=== PATIENT | female | born 1990 | race Caucasian/White ===

== ENCOUNTER 2020-03-12 22:05 | Inpatient (IN) | payer MEDICAID, OTHER ==
[~2020-03-12] VITALS: Ht 167.6 cm; Wt 84.5 kg
[~2020-03-12 22:05] MED LIST: ALBU8.5H5 INH; DOCU-131 PO; IBUP-1222 PO; OXYC-302 PO; PREN1TAB60 PO
[2020-03-13] MEDS: LACTATED RINGERS 1,000 ML IV SCH ×6 (00:15→21:54)
[2020-03-13] MEDS: D5%-LACTATED RINGERS 1,000 ML IV SCH ×4 (00:26→21:54)
[2020-03-13] MEDS ORDERED: OXYTOCIN 30U/ 0.9% NaCL 500ML 500 ML IV ONE (00:26)
[2020-03-13 00:30] VITALS: BP 100/60
[2020-03-13] MEDS ORDERED: SODIUM CITRATE/CITRIC ACID 30 ML UDC PO PRN (00:30)
[2020-03-13] MEDS ORDERED: TERBUTALINE 1 MG/ML, 1ML SQ PRN (00:30)
[2020-03-13] MEDS ORDERED: FENTANYL PF 100 MCG/2ML IVPush PRN (00:30)
[2020-03-13] MEDS ORDERED: ALUMINUM/MAG/SIMETHICONE 30 ML UDC PO PRN (00:30)
[2020-03-13] MEDS ORDERED: CALCIUM CARBONATE 500 MG TAB.CHEW PO PRN (00:30)
[2020-03-13] MEDS ORDERED: FENTANYL PF 100 MCG/2ML IV PRN (00:30)
[2020-03-13] MEDS ORDERED: METOCLOPRAMIDE 5 MG/ML, 2ML IVPush PRN (00:30)
[2020-03-13] MEDS ORDERED: SODIUM CHLORIDE FLUSH 10ML SYR IVF PRN (00:30)
[2020-03-13] MEDS ORDERED: TERBUTALINE 1 MG/ML, 1ML IVPush PRN (00:30)
[2020-03-13 00:52] LABS: BASOPHILS # (AUTO) 0.18 x10^3/uL (0-0.1); BASOPHILS % (AUTO) 2 % (0-1); EOSINOPHILS # (AUTO) 0.07 x10^3/uL (0-0.4); EOSINOPHILS % (AUTO) 1 % (1-7); LYMPHOCYTES # (AUTO) 2.37 x10^3/uL (1-3.4); LYMPHOCYTES % (AUTO) 20 % (22-44); MD NO; MEAN CORPUSCULAR HEMOGLOBIN 29.4 pg (27.0-34.8); MEAN CORPUSCULAR HGB CONC 33.2 g/dL (32.4-35.8); MEAN CORPUSCULAR VOLUME 88.6 fL (80-100); MEAN PLATELET VOLUME 9.3 fL (7.4-10.4); MONOCYTES # (AUTO) 0.58 x10^3/uL (0.2-0.8); MONOCYTES % (AUTO) 5 % (2-9); NEUTROPHILS # (AUTO) 8.42 x10^3/uL (1.8-6.8); NEUTROPHILS % (AUTO) 72 % (42-75); PLATELET COUNT 303 x10^3/uL (130-400); RED CELL DISTRIBUTION WIDTH 13.6 % (9.6-15.2)
[2020-03-13] MEDS ORDERED: MISOPROSTOL 25 MCG TABLET ONE ×2 (01:07→05:05)
[2020-03-13] MEDS: MISOPROSTOL 25 MCG TABLET VG PRN ×2 (01:15→05:11)
[2020-03-13] MEDS ORDERED: ALBUTEROL HFA 90 MCG/SPRAY INH PRN (03:30)
[2020-03-13] MEDS: KALYDECO PO SCH (09:00)
[2020-03-13] MEDS ORDERED: OXYTOCIN 30U/ 0.9% NaCL 500ML 500 ML IV PRN (09:34)
[2020-03-13] MEDS ORDERED: FENTANYL PF 100 MCG/2ML ONE ×3 (11:45→15:57)
[2020-03-13] MEDS ORDERED: ONDANSETRON 2MG/ML, 2ML ONE ×2 (13:44→21:21)
[2020-03-13] MEDS: ONDANSETRON 2MG/ML, 2ML IVPush PRN ×2 (13:45→21:23)
[2020-03-13] MEDS ORDERED: BUPIVACAINE 0.25% ONE ×2 (17:44→17:48)
[2020-03-13] MEDS ORDERED: FENTANYL/BUPIV./NS/PF 250 ML EPIDCONT ONE ×2 (17:44→17:48)
[2020-03-13] MEDS ORDERED: LIDOCAINE 1%, 20ML ONE (17:48)
[2020-03-13] MEDS ORDERED: LIDOCAINE/PF 1.5%-EPI 1:200K, 30ML ONE (17:48)
[2020-03-13] MEDS ORDERED: LACTATED RINGERS 1,000 ML IV SCH (18:05)
[2020-03-13] MEDS ORDERED: FENTANYL/BUPIV./NS/PF 250 ML EPIDCONT SCH (18:05)
[2020-03-13] MEDS ORDERED: DIPHENHYDRAMINE 50 MG/ML, 1ML IVPush PRN (18:30)
[2020-03-13] MEDS ORDERED: LACTATED RINGERS 1,000 ML IVBOLUS PRN (18:30)
[2020-03-13] MEDS ORDERED: NALOXONE 0.4 MG/ML, 1ML IVPush PRN (18:30)
[2020-03-13] MEDS ORDERED: ONDANSETRON 2MG/ML, 2ML IVPush PRN (18:30)
[2020-03-13] MEDS ORDERED: EPHEDRINE 50 MG/ML, 1ML IVPush PRN (18:30)
[2020-03-13 19:45] VITALS: BP 101/58
[2020-03-13] MEDS: OXYTOCIN 30U/ 0.9% NaCL 500ML 500 ML IV SCH ×2 (23:07→23:30)
[2020-03-13] MEDS ORDERED: NEWBORN KIT ONE (23:11)
[2020-03-13] MEDS ORDERED: IBUPROFEN 600 MG TABLET ONE (23:12)
[2020-03-13] MEDS: IBUPROFEN 600 MG TABLET PO PRN (23:14)
[2020-03-13] MEDS ORDERED: OXYTOCIN 30U/ 0.9% NaCL 500ML 500 ML ONE (23:29)
[2020-03-13] MEDS ORDERED: HYDROcodone/APAP 5/325 TABLET PO PRN (23:30)
[2020-03-13] MEDS ORDERED: METHYLERGONOVINE 0.2 MG/ML IM PRN (23:30)
[2020-03-13] MEDS ORDERED: GLYCERIN ADULT SUPP PR PRN (23:30)
[2020-03-13] MEDS ORDERED: ONDANSETRON 2MG/ML, 2ML IV PRN (23:30)
[2020-03-13] MEDS ORDERED: MISOPROSTOL 200 MCG TABLET PR PRN (23:30)
[2020-03-13] MEDS ORDERED: BISACODYL 10 MG SUPP PR PRN (23:30)
[2020-03-13] MEDS ORDERED: SIMETHICONE 80 MG CHEW TAB PO PRN (23:30)
[2020-03-14 00:12] VITALS: BP 110/60
[2020-03-14] MEDS: OXYTOCIN 30U/ 0.9% NaCL 500ML 500 ML IV SCH ×17 (00:33→20:37)
[2020-03-14 01:35] VITALS: BP 100/53
[2020-03-14] MEDS: HYDROcodone/APAP 5/325 TABLET PO PRN ×3 (02:58→21:34)
[2020-03-14] MEDS: IBUPROFEN 600 MG TABLET PO PRN ×4 (05:23→23:29)
[2020-03-14 05:30] VITALS: BP 109/71
[2020-03-14 06:30] LABS: BASOPHILS # (AUTO) 0.27 x10^3/uL (0-0.1); BASOPHILS % (AUTO) 2 % (0-1); EOSINOPHILS # (AUTO) 0.17 x10^3/uL (0-0.4); EOSINOPHILS % (AUTO) 1 % (1-7); LYMPHOCYTES # (AUTO) 2.31 x10^3/uL (1-3.4); LYMPHOCYTES % (AUTO) 14 % (22-44); MD NO; MEAN CORPUSCULAR HEMOGLOBIN 29.7 pg (27.0-34.8); MEAN CORPUSCULAR HGB CONC 33.4 g/dL (32.4-35.8); MEAN CORPUSCULAR VOLUME 88.9 fL (80-100); MEAN PLATELET VOLUME 8.7 fL (7.4-10.4); MONOCYTES # (AUTO) 0.82 x10^3/uL (0.2-0.8); MONOCYTES % (AUTO) 5 % (2-9); NEUTROPHILS # (AUTO) 13.42 x10^3/uL (1.8-6.8); NEUTROPHILS % (AUTO) 79 % (42-75); PLATELET COUNT 272 x10^3/uL (130-400); RED BLOOD COUNT 3.83 x10^6/uL (3.82-5.3); RED CELL DISTRIBUTION WIDTH 13.2 % (9.6-15.2)
[2020-03-14 07:42] VITALS: BP 92/61
[2020-03-14] MEDS: KALYDECO PO SCH (09:00)
[2020-03-14] MEDS: DOCUSATE 100 MG CAPSULE PO PRN ×2 (10:27→21:34)
[2020-03-14] MEDS: PRENATAL VIT/IRON/FA 1 EACH TABLET PO SCH (10:27)
[2020-03-14 13:20] VITALS: BP 93/57
[2020-03-14 19:50] VITALS: BP 94/60
[2020-03-15] MEDS: HYDROcodone/APAP 5/325 TABLET PO PRN ×2 (01:48→05:38)
[2020-03-15] MEDS: IBUPROFEN 600 MG TABLET PO PRN (05:38)
[2020-03-15 07:18] VITALS: BP 99/51
[2020-03-15] MEDS: KALYDECO PO SCH (09:00)
[2020-03-15] MEDS: PRENATAL VIT/IRON/FA 1 EACH TABLET PO SCH (09:00)
== END 2020-03-15 10:40 | disposition home or self-care (01) | DRG 807 ==
LOC: EDIP 03-13 00:02 → UNDOADMIN 03-13 00:02 → LDIP 03-13 00:19 → 2NW 03-14 01:20
PROVIDERS: ADMIT Obstetrics & Gynecology; ATTEND Obstetrics & Gynecology
PROC: 10E0XZZ Delivery of Products of Conception, External Approach (ICD-10-PCS; principal; 2020-03-13)
PROC: 10907ZC Drainage of Amniotic Fluid, Therapeutic from Products of Conception, Via Natural or Artificial Opening (ICD-10-PCS; 2020-03-13)
PROC: 3E0P7VZ Introduction of Hormone into Female Reproductive, Via Natural or Artificial Opening (ICD-10-PCS; 2020-03-13)
PROC: 0UQMXZZ Repair Vulva, External Approach (ICD-10-PCS; 2020-03-13)
PROC: 3E0R3BZ Introduction of Anesthetic Agent into Spinal Canal, Percutaneous Approach (ICD-10-PCS; 2020-03-13)
PROC: 00HU33Z Insertion of Infusion Device into Spinal Canal, Percutaneous Approach (ICD-10-PCS; 2020-03-13)
DX: O71.82 Other specified trauma to perineum and vulva (principal); Z37.0 Single live birth; Z3A.39 39 weeks gestation of pregnancy; Z88.2 Allergy status to sulfonamides
CPT/HCPCS: 36415; J3490; J7121; 85025; 86592; 86850; 86900; G0378; J2405; J3010; J2590; J7120